=== PATIENT | male | born 1955 | race Native Hawaiian/Other Pacific Islander ===

== ENCOUNTER 2016-09-21 13:16 | Outpatient (CLI) | payer OTHER ==
[~2016-09-21 13:16] MED LIST: ALPR0.2566 PO; AMBIEN5 MG PO; BUMETANIDE2 MG PO; COLC0.6T6 PO; DILTIAZEM240 M1 PO; ELIQUIS5 MG OR; HYDR10TA47 PO; KLOR-CON 1010 MEQ PO; KLOR-CON M2020 MEQ PO; METO5TAB38 PO; NEURONTIN800 MG PO; OMEPRAZOLE40 MG PO; PARO20TA3 PO; POTA20TA4 PO; PREDNISONE20 MG OR; REMERON SOLTAB15 MG PO; RLFLU500T PO; SPIRIVA IN; SYMBICORT1 AE1 IN; VALS160T2 PO
[2017-01-08] MEDS ORDERED: DIGITEK0.25 MG PO (23:49)
[2017-01-08] MEDS ORDERED: FURO40TA93 PO (23:50)
[2017-01-09] MEDS ORDERED: SMZ/TMP DS1 TAB PO (15:37)
[2017-01-09] MEDS ORDERED: ANORO ELLIPTA 61 AER IN (15:45)
== END 2016-09-21 19:17 | disposition home or self-care (01) ==
LOC: EDBD 13:16 → CT 13:16
DX: R91.8 Other nonspecific abnormal finding of lung field (principal)

== ENCOUNTER 2016-12-01 13:56 | Outpatient (CLI) | payer OTHER ==
[2016-12-01 14:50] LABS: SODIUM 135 mmol/L (136-145)
[2017-01-08] MEDS ORDERED: DIGITEK0.25 MG PO (23:49)
[2017-01-08] MEDS ORDERED: FURO40TA93 PO (23:50)
[2017-01-09] MEDS ORDERED: SMZ/TMP DS1 TAB PO (15:37)
[2017-01-09] MEDS ORDERED: ANORO ELLIPTA 61 AER IN (15:45)
== END 2016-12-01 19:41 | disposition home or self-care (01) ==
LOC: LABW 13:56 → EDBD 13:56 → LABW 19:41
PROVIDERS: Internal Medicine Cardiovascular Disease
DX: R06.02 Shortness of breath (principal); Z79.899 Other long term (current) drug therapy; Z51.81 Encounter for therapeutic drug level monitoring
CPT/HCPCS: 36415; 80048; 83880

== ENCOUNTER 2016-12-03 13:41 | Outpatient (CLI) | payer OTHER ==
[2017-01-08] MEDS ORDERED: DIGITEK0.25 MG PO (23:49)
[2017-01-08] MEDS ORDERED: FURO40TA93 PO (23:50)
[2017-01-09] MEDS ORDERED: SMZ/TMP DS1 TAB PO (15:37)
[2017-01-09] MEDS ORDERED: ANORO ELLIPTA 61 AER IN (15:45)
== END 2016-12-03 21:41 | disposition home or self-care (01) ==
LOC: US 13:41
DX: R60.0 Localized edema (principal)

== ENCOUNTER 2016-12-29 11:26 | Outpatient (CLI) | payer OTHER ==
[2016-12-29 11:49] LABS: POTASSIUM 3.6 mmol/L (3.6-5.2); SODIUM 139 mmol/L (136-145)
[2017-01-08] MEDS ORDERED: DIGITEK0.25 MG PO (23:49)
[2017-01-08] MEDS ORDERED: FURO40TA93 PO (23:50)
[2017-01-09] MEDS ORDERED: SMZ/TMP DS1 TAB PO (15:37)
[2017-01-09] MEDS ORDERED: ANORO ELLIPTA 61 AER IN (15:45)
== END 2016-12-29 19:06 | disposition home or self-care (01) ==
LOC: LABW 11:26
PROVIDERS: Internal Medicine Cardiovascular Disease
DX: I50.20 Unspecified systolic (congestive) heart failure (principal)
CPT/HCPCS: 36415; 80048; 83880

== ENCOUNTER 2017-01-08 23:19 | Inpatient (IN) | payer OTHER ==
[~2017-01-08] VITALS: Ht 185.4 cm; Wt 125.6 kg
[2017-01-08 23:39] VITALS: BP 147/85; TEMP 97.9
[2017-01-08] MEDS ORDERED: DIGITEK0.25 MG PO ×2 (23:49)
[2017-01-08] MEDS ORDERED: FURO40TA93 PO ×2 (23:50)
[2017-01-09 00:23] LABS: PLATELET COUNT 274 K/uL (142-355)
[2017-01-09 00:31] LABS: POTASSIUM 3.1 mmol/L (3.6-5.2); SODIUM 141 mmol/L (136-145)
[2017-01-09 00:36] LABS: PARTIAL THROMBOPLASTIN TIME 24.4 SECONDS (24.5-33.6)
[2017-01-09 02:53] VITALS: BP 172/94; TEMP 98.3; Ht 185.4 cm; Wt 125.6 kg
[2017-01-09 04:00] VITALS: BP 140/82; TEMP 97.8
[2017-01-09 08:00] VITALS: BP 129/65; TEMP 98.9
[2017-01-09 09:47] LABS: PLATELET COUNT 250 K/uL (142-355)
[2017-01-09 10:07] LABS: POTASSIUM 3.6 mmol/L (3.6-5.2); SODIUM 138 mmol/L (136-145)
[2017-01-09 11:43] VITALS: BP 132/69; TEMP 97.2
[2017-01-09] MEDS ORDERED: SMZ/TMP DS1 TAB PO ×2 (15:37)
[2017-01-09] MEDS ORDERED: ANORO ELLIPTA 61 AER IN ×2 (15:45)
[2017-01-09 16:00] VITALS: BP 136/68; TEMP 98.5
[2017-01-09 19:55] VITALS: BP 146/72; TEMP 97.7
[2017-01-10] VITALS: BP 114/65; TEMP 97.7
[2017-01-10 04:00] VITALS: BP 100/46; TEMP 98
[2017-01-10 06:10] LABS: PLATELET COUNT 234 K/uL (142-355)
[2017-01-10 06:28] LABS: POTASSIUM 3.4 mmol/L (3.6-5.2); SODIUM 138 mmol/L (136-145)
[2017-01-10 08:01] VITALS: BP 126/66; TEMP 97.4
[2017-01-10 12:00] VITALS: BP 139/72; TEMP 97.3
[2017-01-10 16:03] VITALS: BP 126/76; TEMP 98
[2017-01-10 20:17] VITALS: BP 136/87; TEMP 97.9
[2017-01-11] VITALS: BP 155/82; TEMP 97.8
[2017-01-11 04:00] VITALS: BP 125/83; TEMP 97.4
[2017-01-11 06:24] LABS: PLATELET COUNT 253 K/uL (142-355)
[2017-01-11 06:37] LABS: POTASSIUM 3.4 mmol/L (3.6-5.2)
[2017-01-11 08:00] VITALS: BP 128/63; TEMP 98.3
[2017-01-11 11:14] VITALS: BP 152/89; TEMP 97.7
== END 2017-01-11 16:50 | disposition home or self-care (01) | DRG 190 ==
LOC: ED 23:19 → MED/SURG 01-09 01:20
PROVIDERS: Internal Medicine; ADMIT Emergency Medicine
DX: J44.1 Chronic obstructive pulmonary disease with (acute) exacerbation (principal); J18.8 Other pneumonia, unspecified organism; D75.89 Other specified diseases of blood and blood-forming organs; K76.0 Fatty (change of) liver, not elsewhere classified; I48.91 Unspecified atrial fibrillation; I10 Essential (primary) hypertension; N40.0 Benign prostatic hyperplasia without lower urinary tract symptoms
CPT/HCPCS: 36415; 36591; 36600; 80053; 80162; 82550; 82607; 82746; 82805; 82948; 83735; 83880; 84436; 84442; 84443; 84481; 84484; 85027; 85610; 85730; 87040; 93005; 94640; 94664; 94760; 96372; 96374; 96375; 99284; J1644; J1956; J2543; J2920; J2930; J3260; J3420; Q9963

== ENCOUNTER 2017-01-12 11:09 | Outpatient (CLI) | payer OTHER ==
[~2017-01-12 11:09] MED LIST changes: +ANORO ELLIPTA 61 AER IN; +DIGITEK0.25 MG PO; +FURO40TA93 PO; +SMZ/TMP DS1 TAB PO
[2017-01-12 12:04] LABS: SODIUM 144 mmol/L (136-145)
== END 2017-01-12 19:14 | disposition home or self-care (01) ==
LOC: LABW 11:09
PROVIDERS: Internal Medicine Cardiovascular Disease
DX: I50.9 Heart failure, unspecified (principal); Z79.899 Other long term (current) drug therapy
CPT/HCPCS: 36415; 80048; 83880

== ENCOUNTER 2017-01-19 13:31 | Outpatient (CLI) | payer OTHER | END 2017-01-19 14:30 | disposition home or self-care (01) | LOC: LABW 13:31 | DX: Z79.899 Other long term (current) drug therapy (principal); Z51.81 Encounter for therapeutic drug level monitoring | CPT/HCPCS: 36415; 80048 ==

== ENCOUNTER 2017-03-02 08:42 | Outpatient (CLI) | payer OTHER | END 2017-03-02 10:00 | disposition home or self-care (01) | LOC: MRI 08:42 | DX: M54.2 Cervicalgia (principal); M54.12 Radiculopathy, cervical region ==

== ENCOUNTER 2017-03-03 13:45 | Outpatient (CLI) | payer OTHER | END 2017-03-03 15:46 | disposition short-term general hospital (02) | LOC: AMB 13:45 | DX: R06.09 Other forms of dyspnea (principal) | CPT/HCPCS: A0425; A0427 ==

== ENCOUNTER 2017-03-11 07:57 | Outpatient (CLI) | payer OTHER ==
[2017-03-11 09:37] LABS: PLATELET COUNT 263 K/uL (142-355)
[2017-03-11 09:52] LABS: POTASSIUM 3.6 mmol/L (3.6-5.2); SODIUM 141 mmol/L (136-145)
== END 2017-03-11 19:03 | disposition home or self-care (01) ==
LOC: LABW 07:57
PROVIDERS: Specialist
DX: R55 Syncope and collapse (principal); R20.8 Other disturbances of skin sensation
CPT/HCPCS: 36415; 80053; 84443; 85027; 85651; 86039

== ENCOUNTER 2017-04-14 08:01 | Outpatient (CLI) | payer OTHER | END 2017-04-14 19:55 | disposition home or self-care (01) | LOC: RESP 08:01 | DX: R55 Syncope and collapse (principal) ==

== ENCOUNTER 2017-05-29 11:57 | Inpatient (IN) | payer OTHER ==
[~2017-05-29] VITALS: Ht 185.4 cm; Wt 123.9 kg
[2017-05-29 12:27] VITALS: BP 158/95; TEMP 97.7
[2017-05-29] MEDS ORDERED: SPIRIVA IN (12:41)
[2017-05-29] MEDS ORDERED: MELOXICAM15 MG PO (12:41)
[2017-05-29] MEDS ORDERED: ALBUTEROL0.083 % IN (12:42)
[2017-05-29] MEDS ORDERED: ALPR0.2566 PO (12:43)
[2017-05-29] MEDS ORDERED: DALIRESP500 MC1 PO (12:43)
[2017-05-29] MEDS ORDERED: CARTIA XT120 MG/24 PO (12:44)
[2017-05-29] MEDS ORDERED: MIDODRINE2.5 MG PO (12:44)
[2017-05-29] MEDS ORDERED: PREG75CA PO (12:45)
[2017-05-29 13:12] LABS: PLATELET COUNT 231 K/uL (142-355)
[2017-05-29 13:25] LABS: POTASSIUM 3.3 mmol/L (3.6-5.2)
[2017-05-29 14:50] VITALS: BP 152/82
[2017-05-29 16:23] VITALS: BP 138/79; TEMP 97.3; Ht 185.4 cm; Wt 123.9 kg
[2017-05-29 20:00] VITALS: BP 150/82; TEMP 98.3
[2017-05-30] VITALS: BP 142/92; TEMP 97.7
[2017-05-30 04:00] VITALS: BP 135/68; TEMP 98.1
[2017-05-30 06:51] LABS: PLATELET COUNT 202 K/uL (142-355)
[2017-05-30 07:05] LABS: POTASSIUM 2.8 mmol/L (3.6-5.2)
[2017-05-30 08:00] VITALS: BP 146/84; TEMP 97.8
[2017-05-30 12:00] VITALS: BP 136/77; TEMP 98.3
[2017-05-30 16:00] VITALS: BP 131/68; TEMP 98.4
[2017-05-30 20:00] VITALS: BP 138/64; TEMP 97.5
[2017-05-31] VITALS: BP 136/73; TEMP 97.6
[2017-05-31 04:00] VITALS: BP 135/77; TEMP 97.9
[2017-05-31 06:07] LABS: PLATELET COUNT 216 K/uL (142-355)
[2017-05-31 06:22] LABS: POTASSIUM 2.6 mmol/L (3.6-5.2)
[2017-05-31 08:00] VITALS: BP 117/60; TEMP 97.6
[2017-05-31 12:00] VITALS: BP 132/69; TEMP 97.4
[2017-05-31 16:00] VITALS: BP 127/75; TEMP 97.9
[2017-05-31 20:00] VITALS: BP 132/87; TEMP 97.3
[2017-06-01] VITALS: BP 129/51; TEMP 98.1
[2017-06-01 04:00] VITALS: BP 120/71; TEMP 97.7
[2017-06-01 06:49] LABS: PLATELET COUNT 227 K/uL (142-355)
[2017-06-01 08:00] VITALS: BP 126/76; TEMP 98
[2017-06-01 08:23] LABS: POTASSIUM 2.4 mmol/L (3.6-5.2)
[2017-06-01 12:00] VITALS: BP 120/74; TEMP 97.8
[2017-06-01 16:00] VITALS: BP 130/70; TEMP 98
[2017-06-01 20:00] VITALS: BP 127/66; TEMP 97.8
[2017-06-02] VITALS: BP 105/65; TEMP 97.6
[2017-06-02 04:00] VITALS: BP 134/75; TEMP 97.4
[2017-06-02 06:06] LABS: PLATELET COUNT 208 K/uL (142-355)
[2017-06-02 06:14] LABS: POTASSIUM 2.6 mmol/L (3.6-5.2)
[2017-06-02 08:00] VITALS: BP 135/72; TEMP 98.1
[2017-06-02 12:00] VITALS: BP 145/80; TEMP 98.2
== END 2017-06-02 16:09 | disposition home or self-care (01) | DRG 190 ==
LOC: ED 11:57 → MED/SURG 13:50
PROVIDERS: ADMIT Family Medicine
DX: J44.0 Chronic obstructive pulmonary disease with (acute) lower respiratory infection (principal); J18.9 Pneumonia, unspecified organism; J44.1 Chronic obstructive pulmonary disease with (acute) exacerbation; Z72.0 Tobacco use; E66.8 Other obesity; K21.9 Gastro-esophageal reflux disease without esophagitis; E87.6 Hypokalemia; E83.42 Hypomagnesemia; R13.12 Dysphagia, oropharyngeal phase; R09.81 Nasal congestion; G44.89 Other headache syndrome
CPT/HCPCS: 36415; 36600; 80053; 80200; 81000; 82550; 82805; 83735; 83880; 85027; 87040; 93005; 94640; 94664; 94760; 96372; 96374; 99284; J1650; J1956; J2930; J3260; J3475; J3480

== ENCOUNTER 2017-06-04 11:55 | Outpatient (CLI) | payer OTHER ==
[~2017-06-04 11:55] MED LIST changes: +ALBUTEROL0.083 % IN; +CARTIA XT120 MG/24 PO; +DALIRESP500 MC1 PO; +MELOXICAM15 MG PO; +MIDODRINE2.5 MG PO; +PREG75CA PO
[2017-06-04 12:27] LABS: POTASSIUM 3.7 mmol/L (3.6-5.2); SODIUM 139 mmol/L (136-145)
== END 2017-06-04 12:55 | disposition home or self-care (01) ==
LOC: LABW 11:55
PROVIDERS: Family Medicine
DX: E87.6 Hypokalemia (principal)
CPT/HCPCS: 36415; 80053

== ENCOUNTER 2017-06-17 06:25 | Emergency (ER) | payer OTHER ==
[~2017-06-17] VITALS: Ht 160 cm; Wt 131.5 kg
[2017-06-17 06:31] VITALS: TEMP 97.8
[2017-06-17] MEDS ORDERED: PROAIR HFA IN (06:42)
[2017-06-17] MEDS ORDERED: FURO20TA67 PO (06:43)
[2017-06-17] MEDS ORDERED: POT CHLORIDE20 ME2 PO (06:43)
[2017-06-17] MEDS ORDERED: SPIRONOLACT25 MG PO (06:44)
[2017-06-17] MEDS ORDERED: IPRASOL5 IN (06:45)
[2017-06-17 07:24] LABS: PLATELET COUNT 210 K/uL (142-355)
[2017-06-17 07:34] LABS: SODIUM 137 mmol/L (136-145)
[2017-06-17 11:40] VITALS: BP 118/81
== END 2017-06-17 12:24 | disposition short-term general hospital (02) ==
LOC: ED 06:25
PROVIDERS: Specialist
DX: J44.1 Chronic obstructive pulmonary disease with (acute) exacerbation (principal); J96.90 Respiratory failure, unspecified, unspecified whether with hypoxia or hypercapnia; I50.9 Heart failure, unspecified
CPT/HCPCS: 36415; 36600; 80053; 82550; 82553; 82805; 83735; 83880; 84100; 84484; 85027; 85379; 87804; 93005; 94640; 94664; 94760; 96365; 96372; 96375; 99285; J0696; J1650; J2060; J2930

== ENCOUNTER 2017-10-17 12:15 | Emergency (ER) | payer OTHER ==
[~2017-10-17] VITALS: Ht 185.4 cm; Wt 122.5 kg
[~2017-10-17 12:15] MED LIST changes: +FURO20TA67 PO; +IPRASOL5 IN; +POT CHLORIDE20 ME2 PO; +PROAIR HFA IN; +SPIRONOLACT25 MG PO
[2017-10-17 12:30] VITALS: BP 138/90; TEMP 97.4
== END 2017-10-17 12:53 | disposition home or self-care (01) ==
LOC: ED 12:15
DX: M79.601 Pain in right arm (principal)
CPT/HCPCS: 99281

== ENCOUNTER 2018-10-27 10:52 | Outpatient (CLI) | payer OTHER ==
[2018-10-27 11:24] LABS: PLATELET COUNT 181 K/uL (142-355)
[2018-10-27 11:41] LABS: POTASSIUM 5.3 mmol/L (3.6-5.2)
== END 2018-10-27 19:41 | disposition home or self-care (01) ==
LOC: LABW 10:52 → EDBD 10:52 → LABW 19:41
PROVIDERS: Orthopaedic Surgery
DX: M25.562 Pain in left knee (principal); M17.12 Unilateral primary osteoarthritis, left knee; Z01.818 Encounter for other preprocedural examination; Z51.81 Encounter for therapeutic drug level monitoring; Z79.899 Other long term (current) drug therapy
CPT/HCPCS: 36415; 80053; 80323; 83036; 84134; 85027; 85610; 85651; 86140; 93005

== ENCOUNTER 2018-11-13 14:06 | Outpatient (CLI) | payer OTHER | END 2018-11-13 22:14 | disposition home or self-care (01) | LOC: RAD 14:06 | DX: J44.9 Chronic obstructive pulmonary disease, unspecified (principal) ==

== ENCOUNTER 2019-03-14 12:52 | Outpatient (CLI) | payer OTHER | END 2019-03-14 19:23 | disposition home or self-care (01) | LOC: MRI 12:52 | DX: M54.5 Low back pain (principal); M51.36 Other intervertebral disc degeneration, lumbar region; M47.896 Other spondylosis, lumbar region; M54.16 Radiculopathy, lumbar region; M53.3 Sacrococcygeal disorders, not elsewhere classified ==

== ENCOUNTER 2019-11-26 14:17 | Outpatient (CLI) | payer OTHER | END 2019-11-26 23:09 | disposition home or self-care (01) | LOC: CT 14:17 | DX: F17.210 Nicotine dependence, cigarettes, uncomplicated (principal) | CPT/HCPCS: G0297-TC ==

== ENCOUNTER 2022-01-22 13:54 | Outpatient (CLI) | payer OTHER | END 2022-01-22 20:49 | disposition home or self-care (01) | LOC: CT 13:54 | PROVIDERS: ATTEND Internal Medicine | DX: R05.3 Chronic cough (principal); Z72.0 Tobacco use ==

== ENCOUNTER 2022-06-02 08:55 | Outpatient (CLI) | payer OTHER | END 2022-06-02 19:18 | disposition home or self-care (01) | LOC: CT 08:55 | PROVIDERS: ATTEND Internal Medicine | DX: R10.9 Unspecified abdominal pain (principal) | CPT/HCPCS: 36415; 82565; 84520; Q9963 ==

== ENCOUNTER 2022-07-22 13:19 | Outpatient (CLI) | payer OTHER | END 2022-07-22 19:51 | disposition home or self-care (01) | LOC: RAD 13:19 | PROVIDERS: ATTEND Internal Medicine | DX: R05.9 Cough, unspecified (principal); J18.9 Pneumonia, unspecified organism ==

== ENCOUNTER 2022-07-30 09:02 | Outpatient (CLI) | payer OTHER | END 2022-07-30 18:57 | disposition home or self-care (01) | LOC: US 09:02 | PROVIDERS: ATTEND Internal Medicine | DX: M79.662 Pain in left lower leg (principal) ==

== ENCOUNTER 2022-08-25 08:57 | Outpatient (CLI) | payer OTHER ==
[2022-08-25 09:20] LABS: PLATELET COUNT 187 K/uL (142-355)
[2022-08-25 09:24] LABS: POTASSIUM 4.2 mmol/L (3.6-5.2)
== END 2022-08-25 19:02 | disposition home or self-care (01) ==
LOC: CT 08:57
PROVIDERS: ATTEND Internal Medicine Hematology & Oncology
DX: C67.1 Malignant neoplasm of dome of bladder (principal)
CPT/HCPCS: 36415; 80053; 85027; Q9963

== ENCOUNTER 2022-11-08 15:13 | Outpatient (CLI) | payer OTHER | END 2022-11-08 19:02 | disposition home or self-care (01) | LOC: RAD 15:13 | PROVIDERS: ATTEND Internal Medicine | DX: K59.00 Constipation, unspecified (principal); R10.9 Unspecified abdominal pain ==

== ENCOUNTER 2023-04-29 08:11 | Outpatient (CLI) | payer OTHER | END 2023-04-29 20:24 | disposition home or self-care (01) | LOC: US 08:11 | PROVIDERS: ATTEND Nurse Practitioner Family | DX: R10.11 Right upper quadrant pain (principal) ==